=== PATIENT | female | born 1975 | race Hispanic/Latino ===

== ENCOUNTER → 2018-10-28 | Outpatient (CLI) | payer OTHER | END | disposition home or self-care (01) | LOC: RAH 13:56 | PROVIDERS: ATTEND Urology | DX: N20.0 Calculus of kidney (principal) | CPT/HCPCS: 74018; 76100 ==

== ENCOUNTER → 2018-11-30 | Outpatient (CLI) | payer OTHER | END | disposition home or self-care (01) | LOC: RAH 14:06 | PROVIDERS: ATTEND Urology | DX: N20.0 Calculus of kidney (principal); N39.0 Urinary tract infection, site not specified | CPT/HCPCS: 74018; 76100 ==

== ENCOUNTER → 2020-10-30 | Outpatient (CLI) | payer BC | END | disposition home or self-care (01) | LOC: OIH 15:54 | PROVIDERS: ATTEND Internal Medicine | DX: M19.042 Primary osteoarthritis, left hand (principal); M19.041 Primary osteoarthritis, right hand ==

== ENCOUNTER → 2021-04-07 | Outpatient (CLI) | payer BC | END | disposition home or self-care (01) | LOC: RAH 14:26 | PROVIDERS: ATTEND Urology | DX: N20.0 Calculus of kidney (principal); N28.89 Other specified disorders of kidney and ureter | CPT/HCPCS: 74018; 76100 ==